=== PATIENT | male | born 1960 | race African-American/Black ===

== ENCOUNTER 2017-04-16 18:38 | Inpatient (IN) | payer MEDICARE ==
[~2017-04-16] VITALS: Ht 180.3 cm; Wt 69.1 kg
[~2017-04-16 18:38] MED LIST: ASPI81CH43 PO; LISI-275 PO; OXCA300T26 PO; SERT-138 PO
[2017-04-16] MEDS ORDERED: LORazepam 2MG/ML-1ML VIAL ONE (19:11)
[2017-04-16] MEDS ORDERED: LORazepam 2MG/ML-1ML VIAL IV ONE (19:30)
[2017-04-16 19:58] LABS: CONDITION Y; DEFINITIVE SEE PRINTOUT; Hematocrit 35.3 % (41.0-53.0); Hemoglobin 11.7 g/dL (13.5-17.5); Mean Corpuscular Hemoglobin 26.2 pg (28.0-32.0); Mean Corpuscular Hgb Conc. 33.1 g/dL (32.0-36.0); Mean Corpuscular Volume 79.1 fL (80.0-100.0); Mean Platelet Volume 9.2 fL (7.4-10.4); Platelet Count (auto) 275 10^3/uL (140-450); Red Cell Distribution Width 15.7 % (11.6-16.0); SUSPECT SEE PRINTOUT; White Blood Cell 19.9 10^3/uL (4.4-10.8)
[2017-04-16 20:00] LABS: Albumin 3.7 g/dL (3.4-5.0); BUN/Creatinine Ratio 17.5; Potassium 3.7 mmol/L (3.5-5.1)
[2017-04-16 20:02] LABS: Metamyelocytes % 0; Myelocytes % 0; Promyelocytes % 0; Reactive Lymphocytes 0
[2017-04-16 20:27] LABS: Bilirubin, Total 0.5 mg/dL (0.2-1.0); Calcium 9.9 mg/dL (8.5-10.1); Total Protein 7.4 g/dL (6.4-8.2)
[2017-04-16 20:53] LABS: Platelet Estimate Adequate
[2017-04-16 20:54] LABS: Hypochromia Slight
[2017-04-16] MEDS ORDERED: cefTRIAXone 1GM/50ML D5W 50 ML IV ONE (21:15)
[2017-04-16] MEDS ORDERED: TETANUS-DIPTH-ACEL PERTUSSIS 0.5ML SYRG IM ONE (21:15)
[2017-04-16] MEDS ORDERED: LIDOCAINE 1% HCL (LOCAL ANESTH.) INJ 20ML MDV ONE (22:24)
[2017-04-16] MEDS ORDERED: NEOMYCIN-BACITRACIN-POLYM 15GM TOP OINT TOP ONE (22:43)
[2017-04-16] MEDS ORDERED: GENTAMICIN SULF 0.3% OPTH(EYE) OINT 3.5GM ONE (22:56)
[2017-04-16] MEDS ORDERED: NEOMYCIN-BACITRACIN-POLYM UNITDOSE PKG TOP OINT TOP ONE (23:15)
[2017-04-16] MEDS ORDERED: GENTAMICIN SULF 0.3% OPTH(EYE) OINT 3.5GM EACHEYE ONE (23:15)
[2017-04-16] MEDS ORDERED: LIDOCAINE 1% HCL (LOCAL ANESTH.) INJ 20ML MDV IN ONE (23:15)
[2017-04-17] MEDS ORDERED: SODIUM CHLORIDE 0.9% 1,000 ML IV ONE (06:45)
[2017-04-17] MEDS ORDERED: LORazepam 2MG/ML-1ML VIAL IV PRN ×2 (06:45→15:45)
[2017-04-17] MEDS ORDERED: cefTRIAXone 1GM/50ML D5W 50 ML IV ONE ×2 (07:00→10:00)
[2017-04-17] MEDS ORDERED: OXcarbazepine 300 MG TAB PO SCH ×4 (07:00→22:00)
[2017-04-17] MEDS ORDERED: cefTRIAXone 1GM/50ML D5W 50 ML IV SCH (07:00)
[2017-04-17] MEDS: PIPERACILLIN-TAZOB 3.375GM 100 ML IV SCH ×2 (07:40→12:00)
[2017-04-17] MEDS ORDERED: LISINOPRIL 5 MG TAB PO SCH (10:00)
[2017-04-17] MEDS ORDERED: [UNRECOGNIZED DRUG - OTHER] PO SCH (10:00)
[2017-04-17] MEDS ORDERED: ASPirin 81 mg TAB PO SCH (10:00)
[2017-04-17] MEDS ORDERED: SERTRALINE HCL 50 MG TAB PO SCH (10:00)
[2017-04-17] MEDS ORDERED: chlordiazePOXIDE HCL 5 MG CAP PO PRN (15:45)
[2017-04-17] MEDS ORDERED: NICOTINE 21MG/24 HR TOPICAL PATCH TD ONE (15:45)
[2017-04-17] MEDS ORDERED: THIAMINE HCL 100 MG TAB PO ONE (15:45)
[2017-04-17 16:00] VITALS: BP 126/71
[2017-04-17] MEDS ORDERED: HYDROcodone-ACET 10/325MG TAB PO PRN (16:30)
[2017-04-17 22:00] VITALS: BP 107/71
[2017-04-17 22:25] LABS: Urine Bilirubin Negative (Negative); Urine Blood Negative /uL (Negative); Urine Color Yellow (Yellow); Urine Glucose Normal (Normal); Urine Ketone Negative (Negative); Urine Nitrite Negative (Negative); Urine RBC 1 /hpf (0 - 3); Urine Urobilinogen Normal (Negative)
[2017-04-18 05:13] VITALS: BP 131/74
[2017-04-18 05:45] LABS: Basophils # (auto) 0.1 uL; Basophils % (auto) 1.1 % (0.0-2.0); CONDITION Y; DEFINITIVE SEE PRINTOUT; Eosinophils # (auto) 0.2 uL; Eosinophils % (auto) 1.6 % (0.0-7.0); Hematocrit 36.6 % (41.0-53.0); Hemoglobin 11.9 g/dL (13.5-17.5); Lymphocytes # (auto) 2.3 uL; Lymphocytes % (auto) 17.4 % (10.0-50.0); Mean Corpuscular Hemoglobin 26.2 pg (28.0-32.0); Mean Corpuscular Hgb Conc. 32.5 g/dL (32.0-36.0); Mean Corpuscular Volume 80.6 fL (80.0-100.0); Mean Platelet Volume 8.6 fL (7.4-10.4); Monocytes # (auto) 0.9 uL; Monocytes % (auto) 6.8 % (0.0-12.0); Neutrophils # (auto) 9.5 uL; Neutrophils % (auto) 73.1 % (37.0-80.0); Platelet Count (auto) 289 10^3/uL (140-450)
[2017-04-18 06:01] LABS: Calcium 8.8 mg/dL (8.5-10.1); Potassium 3.6 mmol/L (3.5-5.1)
[2017-04-18 06:03] LABS: Albumin 3.8 g/dL (3.4-5.0); Magnesium 2.3 mg/dL (1.6-2.6)
[2017-04-18 06:21] LABS: BUN/Creatinine Ratio 9.3; Bilirubin, Total 0.8 mg/dL (0.2-1.0); Total Protein 7.8 g/dL (6.4-8.2)
[2017-04-18] MEDS ORDERED: OXCA600T3 PO ×2 (06:40)
[2017-04-18] MEDS ORDERED: cefTRIAXone 1GM/50ML D5W 50 ML IV SCH (09:00)
[2017-04-18] MEDS ORDERED: THIAMINE HCL 100 MG TAB PO SCH (10:00)
[2017-04-18] MEDS ORDERED: NICOTINE 21MG/24 HR TOPICAL PATCH TD SCH (10:00)
== END 2017-04-18 08:45 | disposition left against medical advice (07) | DRG 101 ==
LOC: EDBD 18:38 → ER 18:45 → OVERFLOW 18:46 → EAST 04-17 10:45 → WEST WING 04-17 14:35
PROVIDERS: ADMIT Family Medicine; ATTEND Internal Medicine
PROC: 0HQ1XZZ Repair Face Skin, External Approach (ICD-10-PCS; principal; 2017-04-16)
DX: G40.909 Epilepsy, unspecified, not intractable, without status epilepticus (principal); G81.94 Hemiplegia, unspecified affecting left nondominant side; S00.11XA Contusion of right eyelid and periocular area, initial encounter; D72.829 Elevated white blood cell count, unspecified; I10 Essential (primary) hypertension; F10.10 Alcohol abuse, uncomplicated; F41.9 Anxiety disorder, unspecified; F17.210 Nicotine dependence, cigarettes, uncomplicated; G93.89 Other specified disorders of brain; S01.01XA Laceration without foreign body of scalp, initial encounter; S01.112A Laceration without foreign body of left eyelid and periocular area, initial encounter; W34.00XA Accidental discharge from unspecified firearms or gun, initial encounter; Z82.49 Family history of ischemic heart disease and other diseases of the circulatory system; Z83.3 Family history of diabetes mellitus; Y92.89 Other specified places as the place of occurrence of the external cause; Y93.89 Activity, other specified; Z81.1 Family history of alcohol abuse and dependence; Z79.82 Long term (current) use of aspirin
CPT/HCPCS: 12013; 36415; 70450; 70486; 71020; 80053; 80307; 80320; 81001; 83735; 85007; 85025; 85027; 87040; 87086; 90715; 93005; 96361; 96365; 96372; 96375; J0696; J2001; J2543

== ENCOUNTER 2017-07-20 21:51 | Emergency (ER) | payer MEDICARE ==
[~2017-07-20] VITALS: Ht 177.8 cm; Wt 68.0 kg
[~2017-07-20 21:51] MED LIST changes: +OXCA600T3 PO
[2017-07-20 22:31] LABS: Hemoglobin 11.2 g/dL (13.5-17.5); Nucleated Red Blood Cells % 0.1 %
[2017-07-20 22:33] LABS: Basophils # (auto) 0.3 uL; Basophils % (auto) 4.2 % (0.0-2.0); Eosinophils # (auto) 0.2 uL; Hematocrit 35.7 % (41.0-53.0); Lymphocytes # (auto) 1.6 uL; Lymphocytes % (auto) 24.3 % (10.0-50.0); Mean Corpuscular Hemoglobin 21.9 pg (28.0-32.0); Mean Corpuscular Hgb Conc. 31.5 g/dL (32.0-36.0); Mean Corpuscular Volume 69.4 fL (80.0-100.0); Monocytes # (auto) 0.5 uL; Monocytes % (auto) 7.8 % (0.0-12.0); Neutrophils % (auto) 60.7 % (37.0-80.0); Platelet Count (auto) 272 10^3/uL (140-450); Red Blood Cells 5.14 10^6/uL (4.5-5.90); Red Cell Distribution Width 19.6 % (11.8-14.3); White Blood Cell 6.7 10^3/uL (4.4-10.8)
[2017-07-20 22:37] VITALS: BP 152/92
[2017-07-20 22:37] LABS: Acetaminophen < 2.0 ug/mL (10-30); Salicylate 5.6 mg/dL (2.8-20.0)
[2017-07-20 22:44] LABS: Albumin 3.9 g/dL (3.4-5.0); BUN/Creatinine Ratio 20.8; Bilirubin, Total 0.4 mg/dL (0.2-1.0); Calcium 8.7 mg/dL (8.5-10.1); Magnesium 2.3 mg/dL (1.6-2.6); Potassium 3.8 mmol/L (3.5-5.1); Total Protein 8.2 g/dL (6.4-8.2)
[2017-07-20] MEDS ORDERED: MVI in SODIUM CHLORIDE 0.9% 1,010 ML ONE (23:20)
[2017-07-21] MEDS ORDERED: THIAMINE INJ 100 MG, MULTIPLE VITAMIN 10 ML, FOLIC ACID 1 MG, MAGNESIUM SULF SDV 50% 8 ... IV SCH ×5 (12:00)
== END 2017-07-20 23:41 | disposition left against medical advice (07) ==
LOC: EDBD 21:51 → ER 21:51
DX: G92 Toxic encephalopathy (principal); F10.120 Alcohol abuse with intoxication, uncomplicated; I10 Essential (primary) hypertension; F17.210 Nicotine dependence, cigarettes, uncomplicated; Z79.899 Other long term (current) drug therapy; Z88.6 Allergy status to analgesic agent; Z53.29 Procedure and treatment not carried out because of patient's decision for other reasons
CPT/HCPCS: 36415; 80053; 80320; 80329; 83735; 85025; 99284; J3411; J3475

== ENCOUNTER 2018-02-28 10:35 | Emergency (ER) | payer MEDICARE ==
[~2018-02-28] VITALS: Ht 180.3 cm; Wt 79.4 kg
[2018-02-28 10:35] VITALS: BP 122/90
== END 2018-02-28 15:33 | disposition left against medical advice (07) ==
LOC: ER 10:35
DX: M79.671 Pain in right foot (principal); Z53.21 Procedure and treatment not carried out due to patient leaving prior to being seen by health care provider